=== PATIENT | male | born 1970 | race Caucasian/White ===

== ENCOUNTER → 2021-11-11 | Outpatient (CLI) | payer OTHER ==
[2021-11-11 17:27] LABS: BUN/CREATININE RATIO 11 (0-10)
== END ==
LOC: LAB 16:47
PROVIDERS: Internal Medicine
DX: E87.5 Hyperkalemia (principal); M17.0 Bilateral primary osteoarthritis of knee; E03.9 Hypothyroidism, unspecified; F32.9 Major depressive disorder, single episode, unspecified; G47.33 Obstructive sleep apnea (adult) (pediatric); H90.42 Sensorineural hearing loss, unilateral, left ear, with unrestricted hearing on the contralateral side; Z88.0 Allergy status to penicillin
CPT/HCPCS: 36415; 80048